=== PATIENT | female | born 1985 | race Two or more races ===

== ENCOUNTER 2017-06-18 10:13 | Outpatient (CLI) | payer BC ==
[2017-06-21 02:19] LABS: *NEISSERIA GONORRHOEAE NAA Negative (Negative); CHLAMYDIA TRACHOMATIS NAA Negative (Negative)
== END 2017-06-18 23:59 | disposition home or self-care (01) ==
LOC: LAB 10:13
PROVIDERS: ATTEND Family Medicine
DX: Z11.3 Encounter for screening for infections with a predominantly sexual mode of transmission (principal); R87.610 Atypical squamous cells of undetermined significance on cytologic smear of cervix (ASC-US)
CPT/HCPCS: 86592; 86803; 87491; 87591; 88142

== ENCOUNTER 2017-10-08 08:17 | Outpatient (CLI) | payer BC | END 2017-10-08 23:59 | disposition home or self-care (01) | LOC: LAB 08:17 | PROVIDERS: ATTEND Family Medicine | DX: R87.610 Atypical squamous cells of undetermined significance on cytologic smear of cervix (ASC-US) (principal) | CPT/HCPCS: 88142 ==

== ENCOUNTER 2017-11-12 09:38 | Outpatient (CLI) | payer BC ==
[2017-11-12 10:50] LABS: BASOPHILS % (AUTO) 0.4 % (0.0-2.0); EOSINOPHILS # (AUTO) 0.1 /CMM (0.0-0.7); EOSINOPHILS % (AUTO) 0.8 % (0.0-6.0); HEMATOCRIT 38 % (33-45); HEMOGLOBIN 13.1 g/dL (11.5-14.8); LYMPHOCYTES # (AUTO) 2.5 /CMM (0.8-4.8); LYMPHOCYTES % (AUTO) 38.3 % (20.0-44.0); MEAN CORPUSCULAR HEMOGLOBIN 30 PG (26.0-33.0); MEAN CORPUSCULAR HGB CONC 34 g/dl (31.0-36.0); MEAN CORPUSCULAR VOLUME 87 fL (82-100); MONOCYTES # (AUTO) 0.4 /CMM (0.1-1.30); MONOCYTES % (AUTO) 5.8 % (2.0-12.0); NEUTROPHILS # (AUTO) 3.5 /CMM (1.8-8.9); NEUTROPHILS % (AUTO) 54.7 % (43.0-81.0); PLATELET COUNT (AUTO) 312 /CMM (150-450); RDW COEFFICIENT OF VARIATION 12.8 (11.5-15.0); RED BLOOD CELL COUNT(AUTO) 4.41 MIL/uL (4.0-5.2); WHITE BLOOD COUNT (AUTO) 6.4 K/uL (4.3-11.0)
[2017-11-12 10:55] LABS: APPEARANCE,URINE CLEAR (CLEAR); BILIRUBIN,URINE NEGATIVE (NEGATIVE); BLOOD, URINE NEGATIVE Ery/uL (NEGATIVE); COLOR,URINE ORANGE (YELLOW); KETONES,URINE TRACE (NEGATIVE); LEUKOCYTE ESTERASE ,URINE NEGATIVE (NEGATIVE); NITRITE, URINE NEGATIVE (NEGATIVE); PROTEIN,URINE NEGATIVE (NEGATIVE); UGLUCOSE NEGATIVE (NEGATIVE); UROBILINOGEN,URINE 0.2 EU/dL (0.2)
[2017-11-12 10:57] LABS: BACTERIA,URINE None seen /HPF (None Seen); RBC,URINE NONE SEEN /HPF (0-2); SQUAMOUS EPITHELIAL CELL,UR Few /HPF (None Seen); WBC,URINE NONE SEEN /HPF (0-3)
[2017-11-12 11:09] LABS: ALBUMIN 4.1 g/dL (3.4-5.0); BILIRUBIN,TOTAL 1.2 mg/dL (0.2-1.0); CALCIUM, SERUM 8.6 mg/dL (8.5-10.1); CREATININE 0.7 mg/dL (0.6-1.3); POTASSIUM 3.8 mmol/L (3.5-5.1)
[2017-11-12 11:19] LABS: T4 (THYROXINE) 9.4 ug/dL (4.7-13.3); THYROID STIMULATING HORMONE 1.179 uIU/mL (0.358-3.74)
== END 2017-11-12 23:59 | disposition home or self-care (01) ==
LOC: LAB 09:38
PROVIDERS: ATTEND Family Medicine
DX: E55.9 Vitamin D deficiency, unspecified (principal); E78.00 Pure hypercholesterolemia, unspecified
CPT/HCPCS: 36415; 80053-TC; 80061-TC; 81000-TC; 82306; 84436-TC; 84443-TC; 85025-TC

== ENCOUNTER 2018-05-14 12:51 | Emergency (ER) | payer BC ==
[~2018-05-14] VITALS: Ht 157.5 cm; Wt 59.0 kg
[2018-05-14 12:55] VITALS: BP 144/93
== END 2018-05-14 14:14 | disposition home or self-care (01) ==
LOC: ER 12:54
DX: S83.91XA Sprain of unspecified site of right knee, initial encounter (principal); J45.909 Unspecified asthma, uncomplicated; Z88.0 Allergy status to penicillin; X58.XXXA Exposure to other specified factors, initial encounter; Y93.02 Activity, running; Y92.89 Other specified places as the place of occurrence of the external cause; Y99.8 Other external cause status
CPT/HCPCS: 29505; 73564; 99284; A4606; Z7610

== ENCOUNTER 2018-06-18 09:11 | Outpatient (CLI) | payer BC ==
[2018-06-18 09:52] LABS: BASOPHILS % (AUTO) 0.2 % (0.0-2.0); HEMATOCRIT 41 % (33-45); HEMOGLOBIN 13.5 g/dL (11.5-14.8); LYMPHOCYTES # (AUTO) 1.9 /CMM (0.8-4.8); LYMPHOCYTES % (AUTO) 16.7 % (20.0-44.0); MEAN CORPUSCULAR HEMOGLOBIN 29 PG (26.0-33.0); MEAN CORPUSCULAR HGB CONC 33 g/dl (31.0-36.0); MEAN CORPUSCULAR VOLUME 89 fL (82-100); MONOCYTES # (AUTO) 0.6 /CMM (0.1-1.30); MONOCYTES % (AUTO) 5.5 % (2.0-12.0); NEUTROPHILS % (AUTO) 77.6 % (43.0-81.0); PLATELET COUNT (AUTO) 325 /CMM (150-450); RDW COEFFICIENT OF VARIATION 12.8 (11.5-15.0); WHITE BLOOD COUNT (AUTO) 11.6 K/uL (4.3-11.0)
[2018-06-18 09:58] LABS: URIC ACID 3.6 mg/dL (2.6-7.2)
[2018-06-18 10:02] LABS: CALCIUM, SERUM 8.6 mg/dL (8.5-10.1); CREATININE 0.6 mg/dL (0.6-1.3); POTASSIUM 3.6 mmol/L (3.5-5.1); TOTAL PROTEIN, SERUM 8.2 g/dL (6.4-8.2)
== END 2018-06-18 23:59 | disposition home or self-care (01) ==
LOC: LAB 09:11
PROVIDERS: ATTEND Family Medicine
DX: M25.561 Pain in right knee (principal)
CPT/HCPCS: 36415; 80053-TC; 82306; 84550-TC; 85025-TC

== ENCOUNTER 2018-07-24 08:17 | Outpatient (CLI) | payer BC ==
[2018-07-24] MEDS ORDERED: GADODIAMIDE 2.5 MMOL/5 ML VIAL IJ ONE (08:18)
== END 2018-07-24 23:59 | disposition home or self-care (01) ==
LOC: MRI 08:17
PROVIDERS: ATTEND Family Medicine
DX: M22.41 Chondromalacia patellae, right knee (principal); R60.0 Localized edema; D16.21 Benign neoplasm of long bones of right lower limb; J44.9 Chronic obstructive pulmonary disease, unspecified
CPT/HCPCS: 73720-TC; 73723-TC

== ENCOUNTER 2018-10-21 18:57 | Emergency (ER) | payer BC ==
[~2018-10-21] VITALS: Ht 157.5 cm; Wt 56.7 kg
[2018-10-21 19:23] VITALS: BP 126/83
== END 2018-10-21 19:43 | disposition home or self-care (01) ==
LOC: ER 18:57
DX: J40 Bronchitis, not specified as acute or chronic (principal); Z88.0 Allergy status to penicillin
CPT/HCPCS: A4606; Z7610

== ENCOUNTER 2018-10-29 18:53 | Emergency (ER) | payer BC ==
[~2018-10-29] VITALS: Ht 157.5 cm; Wt 59.0 kg
--- NOTE | 2018-10-29 19:02 | NUR ---
flu like sx x 2 1/2 weeks , dx with bronchitis 10/22/18 seen here given promethzine not getting better. PT REPORTS PRODUCTIVE COUGH WITH GREEN SPUTUM. HAS SOME PAIN WITH COUGH. PT IS AOX4, AMBULATORY, VSS, RR EVEN AND UNLABORED. SKIN WARM, DRY, INTACT. DENIES SOB, DIZZINESS, WEAKNESS, N/V/D. NO ACUTE DISTRESS NOTED. READY FOR EVAL.
--- NOTE | 2018-10-29 20:40 | NUR ---
Patient discharged to home in stable condition. Written and verbal after care instructions given. Patient verbalizes understanding of instruction.
[2018-10-29 20:41] VITALS: BP 118/78
== END 2018-10-29 20:36 | disposition home or self-care (01) ==
LOC: ER 18:56
DX: J40 Bronchitis, not specified as acute or chronic (principal); Z88.0 Allergy status to penicillin
CPT/HCPCS: 71045; 99283; A4606; Z7610

== ENCOUNTER 2018-11-02 10:34 | Emergency (ER) | payer BC ==
[~2018-11-02] VITALS: Ht 157.5 cm; Wt 69.4 kg
[2018-11-02 10:59] VITALS: BP 121/60
== END 2018-11-02 11:13 | disposition home or self-care (01) ==
LOC: ER 10:36
DX: J06.9 Acute upper respiratory infection, unspecified (principal); J45.909 Unspecified asthma, uncomplicated; Z88.0 Allergy status to penicillin
CPT/HCPCS: 99282; A4606; Z7610

== ENCOUNTER 2019-02-03 11:37 | Outpatient (CLI) | payer BC | END 2019-02-03 23:59 | disposition home or self-care (01) | LOC: LAB 11:37 | PROVIDERS: ATTEND Family Medicine | DX: Z12.4 Encounter for screening for malignant neoplasm of cervix (principal) | CPT/HCPCS: 88142 ==